=== PATIENT | male | born 1960 | race American Indian/Alaskan Native ===

== ENCOUNTER 2019-07-02 06:56 | Day surgery (SDC) | payer MEDICAID ==
[2019-07-02] MEDS ORDERED: XYLOCAINE 2% INFILTRATI ONE (07:13)
[2019-07-02] MEDS ORDERED: DIPRIVAN 10 MG/ML IV ONE ×2 (07:13)
[2019-07-02] MEDS ORDERED: WATER FOR IRRIG STERILE IR ONE (07:21)
[2019-07-02] MEDS ORDERED: WATER FOR IRRIG STERILE ONE (07:21)
--- NOTE | 2019-07-02 07:39 | Anesthesia Day of Surgery ---
Anesthesia Day of Surgery - Day of Surgery Patient Examined: Yes Patient H&P Reviewed: Yes Patient is NPO: Yes ([address] [place] soda)
--- NOTE | 2019-07-02 07:41 | Anesthesia Consultation ---
Anesthesia Consult and Med Hx Date of service: 07/02/19 - Airway ROM Head & Neck: Adequate Mental/Hyoid Distance: Adequate Mallampati Class: Class II (TRACH) Intubation Access Assessment: Possibly Difficult (PT HAS TRACH) - Pre-Operative Health Status ASA Pre-Surgery Classification: ASA3 Proposed Anesthetic Plan: MAC - Pulmonary Hx Smoking: No - Endocrine Hx Non-Insulin Dependent Diabetes: Yes Hx Thyroid Disease: Yes Hx Hypothyroidism: Yes - Additional Comments Anesthesia Medical History Comments: HX Laryngeal cancer-TRACH
[2019-07-02] MEDS ORDERED: NACL 0.9% 1000 ML 1,000 ML IV SCH (08:00)
[2019-07-02] MEDS ORDERED: HURRICAINE ONE 20% TOPICAL SPRAY MM ×2 (08:00→08:02)
[2019-07-02] MEDS ORDERED: VERSED ONE (08:03)
[2019-07-02] MEDS ORDERED: SUBLIMAZE ONE (08:04)
--- NOTE | 2019-07-02 08:36 | Operative Report ---
Operative Report Operative Report: DOS: 07/02/19 SURGEON: Artemio Roger MD EGD with dilation REPORT PREOPERATIVE DIAGNOSIS and POSTOPERATIVE DIAGNOSIS: dysphagia ESTIMATED BLOOD LOSS: minimal DESCRIPTION OF PROCEDURE: A high-resolution EGD scope was passed through the oropharynx to the proximal esophagus but could not be advanced beyond the esophagus. At the end of the procedure, the scope was cleaned using normal technique. Vital signs monitored continuously throughout. SEDATION: Provided by [facility]. COMPLICATIONS: None. FINDINGS: * Altered anatomy of the posterior oropharynx * Stricture of the UES, unable to pass the scope. TTS balloon dilation performed dilating 8-9-10mm without difficulty and only minimal amount of bleeding and no significant mucosal tearing. The EGD scope could not pass so a second TTS balloon dilation was performed to 11mm at which point there was some mucosal trauma. The EGD scope could be passed, but almost immediately there was a foreign body seen in the esophagus blocking passage of the scope, consistent with the tracheostomy eroding through into the esophagus. This could not be passed and so the procedure was aborted RECOMMENDATIONS: * Report called to Dr. Andrade. Patient will need ENT who placed the trach, vs CT surgery, to repair the issue. Oftentimes esophageal stents will be needed in situations like this, but will need to be coordinated with the surgeon. I provided Dr. Andrade with images of the lesion and will be available to coordinate esophageal stenting if needed.
[2019-07-02 09:07] VITALS: BP 105/52
== END 2019-07-02 06:57 | disposition home or self-care (01) ==
LOC: GIO 06:56
PROVIDERS: ATTEND Student in an Organized Health Care Education/Training Program
DX: K22.2 Esophageal obstruction (principal); R13.10 Dysphagia, unspecified; I25.10 Atherosclerotic heart disease of native coronary artery without angina pectoris; E11.9 Type 2 diabetes mellitus without complications; E03.9 Hypothyroidism, unspecified; Z98.890 Other specified postprocedural states; Z79.899 Other long term (current) drug therapy; Z79.84 Long term (current) use of oral hypoglycemic drugs; Z85.818 Personal history of malignant neoplasm of other sites of lip, oral cavity, and pharynx
CPT/HCPCS: 43249; 82962; C1726; J2250; J2704; J3010; J7030